=== PATIENT | female | born 1945 | race Caucasian/White ===

== ENCOUNTER → 2016-11-27 | Outpatient (CLI) | payer OTHER ==
[~2016-11-27] MED LIST: ACET-1256 PO; ASPI81TA28 PO; CALC600T9 PO; CLC100 PO; FURO-85 PO; GABA-113 PO; HYDR50TA3 PO; LVNIS30 SQ; METO25TA3 PO; MULT-1018 PO; MULT-506 PO; NAPR-1169 PO; OXYC1TAB3 PO; ROSU40TA PO; ULT50X PO
--- NOTE | 2016-11-27 09:15 | DIAGNOSTIC IMAGING REPORT ---
RIGHT KNEE RADIOGRAPHS WITH COMPARISON STANDING AP RADIOGRAPH OF THE LEFT KNEE CLINICAL HISTORY: Right knee pain. COMPARISON: Knee radiographs August 25, 2013. FINDINGS: Comparison standing AP radiograph of the left knee demonstrates mild lateral compartment joint space narrowing. Alignment of the right knee is anatomic. There is a small right knee joint effusion. There is moderate to severe lateral compartment joint space narrowing. There is patellofemoral joint space narrowing with osteophytosis. No acute fracture is identified. IMPRESSION: 1. Moderate to severe osteoarthritis within the lateral and patellofemoral compartments of the right knee with mild arthritis within the medial compartment. 2. Small right knee joint effusion. 3. No fracture. Electronically signed by: Marciano Hernandez M.D. 11/27/2016 9:13 AM Dictated Date/Time: 11/27/2016 9:12 AM
== END | disposition home or self-care (01) ==
LOC: C.RDSM 09:00
PROVIDERS: ATTEND Physician Assistant
DX: M25.561 Pain in right knee (principal)

== ENCOUNTER → 2016-12-14 | Outpatient (CLI) | payer OTHER ==
--- NOTE | 2016-12-14 14:02 | DIAGNOSTIC IMAGING REPORT ---
PELVIS 1 OR 2 VIEWS CLINICAL HISTORY: Pelvis pain. Fall. Left hip pain. COMPARISON STUDY: Left hip 02/06/2011. FINDINGS: No acute fracture or dislocation within the pelvis or hips. There is a left total hip arthroplasty. The hardware is intact. Mild osteoarthritis within the right hip. No fractures within the sacrum. IMPRESSION: No acute fracture or dislocation within the pelvis or hips. Left total hip arthroplasty. Electronically signed by: Noam Wallace M.D. 12/14/2016 2:00 PM Dictated Date/Time: 12/14/2016 1:58 PM
== END | disposition home or self-care (01) ==
LOC: C.RDSM 07:55
PROVIDERS: ATTEND Physician Assistant
DX: R10.2 Pelvic and perineal pain (principal); Z96.642 Presence of left artificial hip joint

== ENCOUNTER → 2017-05-14 | Outpatient (CLI) | payer OTHER | END | disposition home or self-care (01) | LOC: C.RDSM 12:19 | PROVIDERS: ATTEND Physical Medicine & Rehabilitation Sports Medicine | DX: M17.11 Unilateral primary osteoarthritis, right knee (principal) ==

== ENCOUNTER 2017-06-08 07:03 | Inpatient (IN) | payer OTHER ==
--- NOTE | 2017-05-19 11:41 | HISTORY & PHYSICAL EXAMINATION ---
DATE OF ADMISSION: 06/08/2017 ATTENDING PHYSICIAN: Dr. Ced Plascencia. FAMILY PHYSICIAN: Dr. Victor Hugo Tate. CHIEF COMPLAINT: Right knee pain x5 or more years. HISTORY OF PRESENT ILLNESS: The patient has been having right knee pain for the past 5 years or more. She states that it has been progressively worsening over the last year or so. She has pain across the top and radiates around the back of her knee. She does have radiation up and down her thigh. Her pain has increased with activity and weightbearing. She has decreasing activities of daily living due to pain in her right knee. She states she has pain with range of motion and limited motion. Occasionally, she gets some mild swelling of the knee which comes and goes. Aggravating activities include walking, going up and down stairs, rest and night pain. She states that it does wake her up on a pretty regular basis. Prior treatments include nonsteroidal anti-inflammatory drugs, physical therapy after her meniscectomy in 2005. She said that she has had a brace, but she does not presently use it. She said that it really has not given her much relief. Sometimes it makes her knee worse. She states that she feels that her problems had started maybe in 2005 after she had a knee arthroscopy. She has also had viscosupplementation and corticosteroid injections most recently in November 2016. PAST MEDICAL HISTORY: 1. Hyperlipidemia. 2. Osteoarthritis. 3. High blood pressure. 4. Overweight. 5. Low back pain, history of sciatica. 6. 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 7. Dermato stasis, right lower extremity. CURRENT MEDICATIONS: 1. Acetaminophen 500 mg p.o. as needed for pain. 2. Aspirin 81 mg p.o. daily. 3. Calcium plus vitamin D two tablets twice daily. 4. Furosemide 20 mg p.o. daily. 5. Hydrochlorothiazide 50 mg p.o. daily. 6. Multivitamin p.o. daily. 7. Naproxen 500 mg one tab p.o. b.i.d. 8. Crestor 20 mg one tab p.o. daily. 9. She takes a hair, skin and nail supplement daily. ALLERGIES: SHE IS ALLERGIC TO SULFA DRUGS WHICH CAUSE HIVES. PAST SURGICAL HISTORY AND HOSPITALIZATIONS: 1. She had a history of right knee arthroscopy, is status post partial medial meniscectomy in [address] Plascencia. 2. She had a left total hip replacement in 2010. 4. D&C. 5. Eye surgery in 2007. 6. Ganglion cyst and neuroma removal. SOCIAL HISTORY: She lives with her in a single level home. Denies any tobacco or drug use. She does drink one alcoholic drink per week. She does not use any assisted device for ambulation at this point. FAMILY HISTORY: Father had a history of stroke. Her mother had a history of CHF. Her mother at age of 92 and her father at the age of 91. REVIEW OF SYSTEMS: She does state that she did receive a blood transfusion after her hip replacement in 2010 and she did fine with that. No concerns regarding transfusions for this admission. She denies any bleeding or clotting disorders. Denies any history of DVT, pulmonary embolus, or phlebitis. She denies any skin conditions, although she recently had a squamous cell carcinoma removed from her left cheek. Denies any issues with headaches or migraines. Denies any blurry vision or hearing loss. She denies any history of seizures, syncopal episodes, lightheadedness or dizziness. Denies any chest pain, heart palpitations or shortness of breath. She denies any issues with heartburn, reflux, indigestion, nausea, vomiting, diarrhea or constipation. She denies any frequency, burning with urination, or foul-smelling urine. No recent urinary tract infections. Review of systems for her lower extremities as per HPI. PHYSICAL EXAMINATION: GENERAL: She is alert and oriented x3. She does not use an assistive device for ambulation. She does not walk with an antalgic gait. Height is 5 feet 7 inches, weight is 200 pounds, BMI is 31.3. HEENT: Head is atraumatic, normocephalic. EYES: Extraocular movements intact. Pupils are equal, round and reactive to light. Sclerae are normal. EARS: Hearing is grossly normal. TMs are clear with normal light reflex. NOSE: Nares are patent bilaterally, normal turbinates. THROAT: Oropharynx is clear. Mucous membranes are moist. Good dentition. Uvula midline. NECK: Nontender to palpation, supple. No lymphadenopathy, no carotid bruits appreciated. Thyroid normal. Trachea midline. CHEST: Nontender to palpation. No accessory muscles use. LUNGS: Clear to auscultation bilaterally. No adventitious sounds. HEART: Regular rate and rhythm, normal S1, S2, no murmurs appreciated. ABDOMEN: Soft, nontender, nondistended. Bowel sounds heard in all 4 quadrants. MUSCULOSKELETAL: She does have some mild change to her skin on the right lower extremity suggestive of chronic venous stasis disease. She is able to actively do an independent straight leg raise. There is pain with movement of her right hip. Ligamentously, her right knee is stable. She has valgus alignment. Her strength is 5/5. A 1+ dorsalis pedis and posterior tibial pulses. Range of motion of her right knee is 0/5/95. Tenderness lateral more so than on the medial side. There is no effusion to her right knee today. RADIOLOGY IMAGES: X-rays: 4 views of bilateral knees show [id number] changes, especially in the lateral compartment of her right knee. Slight valgus alignment. Impression: Distal osteophyte formation and some subchondral sclerosis. No evidence of subluxation. IMPRESSION: End-stage osteoarthritis, right knee. PLAN: The patient will be admitted for a right total knee arthroplasty with Dr. Plascencia on 06/08/2017 at the [facility]. The risks and complications of the surgery were explained to the patient include, but are not limited to infection, pain, bleeding, scarring, nerve and blood vessel damage, wound problems, weakness, stiffness, incomplete relief of symptoms, hardware failure, hardware loosening or wear, fracture, blood clots, embolisms, heart attack, stroke and . All questions were answered and informed consent was obtained by Dr. Plascencia. Prior to surgery, she will have preadmission testing in which we will obtain a preoperative EKG, chest x-ray, CBC, BMP, PT, PTT, type and screen. She will also obtain preoperative medical clearance by her family physician, Dr. Tate or someone from his practice. Postoperative course was discussed. She would like to go home with outpatient physical therapy after surgery. We will use Lovenox for DVT prophylaxis for 4 weeks postoperatively. All questions were answered today. She knows to call with any further problems, questions, or concerns. TAMIKO
[2017-05-21 10:03] VITALS: BMI 32.0
--- NOTE | 2017-05-21 10:48 | PAT Medication Instructions ---
Service Date May 21, 2017. Current Home Medication List Acetaminophen (Tylenol), 1,000 MG PO Q8 PRN for Pain Aspirin (Aspirin Ec), 81 MG PO QAM Calcium Carbonate-Vitamin D (Calcium + D), 1 TAB PO BID Furosemide (Lasix), 20 MG PO DAILY PRN for EDEMA Gabapentin (Neurontin), 300 MG PO BID Hydrochlorothiazide (Hctz), 50 MG PO QAM Multiple Vitamins W/ Minerals (Hair Skin and Nails Formu), 1 TAB PO QAM Multivitamin (Multivitamin), 1 TAB PO QAM Naproxen (Naprosyn), 500 MG PO BID Rosuvastatin Calcium (Crestor), 40 MG PO QAM Medication Instructions For Your Scheduled Surgery - Hold the following medications the morning of surgery: Furosemide (Lasix), 20 MG PO DAILY PRN for EDEMA Calcium Carbonate-Vitamin D (Calcium + D), 1 TAB PO BID Hydrochlorothiazide (Hctz), 50 MG PO QAM Multiple Vitamins W/ Minerals (Hair Skin and Nails Formu), 1 TAB PO QAM Multivitamin (Multivitamin), 1 TAB PO QAM Naproxen (Naprosyn), 500 MG PO BID (otherwise okay to continue per surgeon) - Take the following medications the morning of surgery with a sip of water OTHERWISE NOTHING TO EAT OR DRINK AFTER MIDNIGHT: Acetaminophen (Tylenol), 1,000 MG PO Q8 PRN for Pain (may take if needed up to 4 hours prior to surgery) Aspirin (Aspirin Ec), 81 MG PO QAM Gabapentin (Neurontin), 300 MG PO BID Rosuvastatin Calcium (Crestor), 40 MG PO QAM - Take the following medications as scheduled the night before surgery: Acetaminophen (Tylenol), 1,000 MG PO Q8 PRN for Pain Calcium Carbonate-Vitamin D (Calcium + D), 1 TAB PO BID Gabapentin (Neurontin), 300 MG PO BID If you have any questions please call us at [phone] or [phone] or [phone]
--- NOTE | 2017-05-21 11:24 | DIAGNOSTIC IMAGING REPORT ---
CHEST PREADMISSION(PA/LAT) CLINICAL HISTORY: Preoperative chest COMPARISON STUDY: No previous studies for comparison. FINDINGS: The cardiac and mediastinal contours are normal. There is no evidence of focal pulmonary consolidation. There is no evidence of failure. No pleural effusions are visualized.[ IMPRESSION: No active disease in the chest. Electronically signed by: Ferny Vargas M.D. 05/21/2017 11:23 AM Dictated Date/Time: 05/21/2017 11:23 AM
[2017-05-21 12:03] LABS: PROTHROMBIN TIME (PATIENT) 10.9 SECONDS (9.0-12.0)
[2017-06-08] VITALS (9 sets, daily range): BP systolic 129–187; BP diastolic 78–110; PULSE 57–81; TEMP 36.4–36.7; O2SAT 86–98; Ht 170.2 cm; Wt 92.6 kg
[~2017-06-08] VITALS: Ht 170.2 cm; Wt 92.6 kg
[2017-06-08] MEDS: TRANEXAMIC ACID INJ 1,000 MG in SODIUM CHLORIDE 0.9% 100ML 100 ML IV SCH ×3 (06:30→09:16)
[~2017-06-08 07:03] MED LIST changes: +ACETAMINOPHEN 500 MG TAB PO SCH; +BUPIVACAINE 0.5 % 5 MG/1 ML PF 10ML VIAL ONE; +CEFAZOLIN 2000 MG/60 ML D5W 60 ML IV SCH; -CLC100 PO; +CLONIDINE HCL 0.1 MG/24 HR TRANSDERM SYS TD SCH; +CeleBREX 200 MG CAP PO SCH; +DEXAMETHASONE 4 MG TAB PO SCH; +FAMOTIDINE 20 MG TAB PO SCH; +GABAPENTIN 300 MG CAP PO SCH; +LACTATED RINGER'S 1000ML 1,000 ML IV SCH; +LACTATED RINGER'S 1000ML 500 ML IV ONE; -LVNIS30 SQ; -METO25TA3 PO; +METOCLOPRAMIDE HCL 10 MG TAB PO SCH; -OXYC1TAB3 PO; +OXYCODONE HCL 10 MG TABCR (OXYCONTIN) PO SCH; +ROPIVACAINE 0.5% 5 MG/ML 30 ML VIAL ONE; +ROPIVACAINE 5MG/ML 30 ML 150 MG, BUPIVACAINE/EPINEPHR 0.5% MPF 30 ML, KETOROLAC TROMETH... INFIL SCH; +TRAMADOL HCL 50 MG TAB PO SCH; -ULT50X PO
[2017-06-08] MEDS ORDERED: MIDAZOLAM HCL 1 MG/ML 2ML VIAL ONE ×2 (08:12)
[2017-06-08] MEDS ORDERED: ONDANSETRON INJ 2 MG/ML 2 ML VIAL IV PRN ×2 (08:15→14:00)
[2017-06-08] MEDS ORDERED: PHENYLEPHRINE 100MCG/ML 5ML SYR IV PRN (08:15)
[2017-06-08] MEDS ORDERED: EpHEDrine SULFATE INJ 50 MG/ML AMP IV PRN (08:15)
[2017-06-08] MEDS ORDERED: HYDROmorphone INJ 2 MG/ML SYR/VIAL IV PRN (08:15)
[2017-06-08] MEDS ORDERED: ATROPINE SULFATE 0.1 MG/ML 5ML SYR IV PRN (08:15)
[2017-06-08] MEDS ORDERED: ROPIVACAINE 5MG/ML 30 ML 150 MG, BUPIVACAINE/EPINEPHR 0.5% MPF 30 ML, KETOROLAC TROMETH... INFIL SCH ×5 (09:00)
--- NOTE | 2017-06-08 09:56 | History & Physical Bridge Note ---
H&P Re-Evaluation Bridge Note: I have examined the patient, reviewed the History & Physical and in the interval since the performance of the History & Physical I have noted the following changes of clinical significance: No changes noted
[2017-06-08] MEDS ORDERED: ORTHO JOINT ANESTHETIC ONE (10:08)
[2017-06-08] MEDS ORDERED: POVIDONE-IODINE OP SOLN 30 ML BTL ONE (10:08)
[2017-06-08] MEDS ORDERED: BACITRACIN 50000 UNIT VIAL ONE (10:09)
[2017-06-08] MEDS ORDERED: FENTANYL CITRATE INJ 50 MCG/1 ML 2 ML VIAL ONE (12:20)
[2017-06-08] MEDS ORDERED: PROPOFOL IV EMULSION 10 MG/ML 20 ML VIAL IV ONE ×2 (12:35→13:17)
[2017-06-08] MEDS ORDERED: LIDOCAINE HCL 2% 2 ML VIAL (20MG/ML) ONE (12:35)
--- NOTE | 2017-06-08 13:52 | [facility] Operative Report ---
Operative Report Operative Date Jun 08, 2017. Pre-Operative Diagnosis Right Knee End-Stage Osteoarthritis lateral compartment with valgus and flexion contracture Post-Operative Diagnosis Right Knee End-Stage Osteoarthritis same Procedure(s) Performed Right Total Knee Arthroplasty, Cemented Surgeon Dr. Ced Plascencia Compliance Tester Surgeon(s) Soraya Ervin PA-C Estimated Blood Loss 50 ml Findings Significant lateral joint scarring and tightness of LCL and lateral capsular tissues necessitating a release. Specimens Permanent: A. Right Knee Bone and Tissue Drains none Anesthesia spinal with sedation and peripheral nerve block Complication(s) None Disposition Recovery Room / PACU Indications Patient's a 72-year-old female with severe osteoarthritis right knee lateral compartment refractory to nonsurgical methods of management. She elected to proceed with operative intervention. Description of Procedure Patient was identified as Keely cerna. Informed consent was obtained. A preoperative surgical timeout was performed. She identified the operative site as the right knee. I marked with my initials. Preoperative surgical timeout was performed. The anesthetic was administered. DVT prophylaxis intraoperatively with foot pumps. Postoperatively early mobility mechanical devices and Lovenox. The exam under anesthesia revealed range of motion 0/10/ approximate 105. She had no cruciate or collateral laxity there was slight valgus deformity to the knee. Tripped dose of IV antibiotics was given. He was positioned supine on the OR table with a tourniquet on the right thigh bony prominences were inspected and padded. A padded bump was used to position the leg. The right leg was prepped and draped in the usual sterile fashion. The limb was exsanguinated with the Esmarch. Tourniquet inflated to 250 mmHg and later to 300 mmHg. A midline longitudinal incision was made of about 20-25 cm in length. This was followed by a medial parapatellar arthrotomy. Patient received TXA preoperatively. The retropatellar fat pad was excised. This was significantly scarred. She had a large patella with medium-sized marginal osteophytes which were debrided. There were areas of grade 3 chondrosis in the medial and lateral facet of the patella. She had grade 4 change in the lateral compartment mostly central and posterior. The lateral meniscus was relatively intact. The medial meniscus was intact in the medial compartment looked relatively normal. The trochlea showed grade 2 and 3 changes. The cruciate ligaments were resected. The synovial reflection and lateral gutter and some scarring in the lateral gutter area and the knee was released. The patella was then able to be easily everted. Soft tissue on the anterior aspect the distal femur was also excised. A minimal medial release was performed. Enough in such a fashion for knee could be subluxated. The knee was then subluxated and a customer logistics manager hole drilled into the proximal tibia followed by insertion of an intramedullary alignment miesha. This was just between and in front of the tibial spines. Guide was set to resect 6 mm off of the high side which was medial corresponding to a 4 mm cut lateral. The slope was assessed with the extra medullary alignment miesha. The slope was parallel to the tibia and the ankle bisected the ankle joint and intersected the second ray. This cut was then made and sized to a 4. The tibia was later recut and downsized to a 3. Power holes drilled in the distal femur followed by insertion of the distal femoral cutting guide set at left knee 5 valgus upon preoperative templating and slight valgus metaphyseal bow. A 12 mm thick cut was then made which was almost a skim cut laterally. I double checked medially and this was a 12 mm thick cut. The extension gap was an 8 medially and probably a 6 laterally. I then performed an inverted cruciform release. Releasing the lateral capsule down to the tibial plateau and the soft tissue transversely between the LCL and [place] tendon which was identified. The popliteus did not appear to be tight. This did not solve the problem. The knee was then placed into the 90 position. The distal femoral sizing block was applied and sized to a 4. The cutting guide was applied and the cuts were then made. The flexion gap was as symmetric 10. The transverse epicondylar axis was marked out and the distal femoral cutting guide was aligned with it based upon the use of the instrumentation. The collateral ligaments were protected. At this point the symmetric flexion gap was symmetric 10. The extension gap remained significantly tight laterally. I then went ahead and resected posterior lateral osteophytes and released posterior lateral capsule off of the tibia. Small loose body was noted and excised. This improved the tightness slightly but remained asymmetrically tight. I then pie crusted the LCL and perhaps 2 mm was gained there but still not enough to get the [address]. Prior to this side had gone back and recut the tibia and additional 2 mm shell made the medial side a 10 mm. The tibia was downsized to a 3. I then went and slowly released the lateral collateral and popliteus off of the distal femur in 1 large soft tissue envelope. Releasing sequentially and then rechecking the laxity pattern. The LCL was not completely released perhaps half to two thirds of it were. At this point the 10 sizer block was applied with good fit and fill laterally with a trace bit of laxity medially. The knee could be held in full extension. The box cutting guide was applied lateralized and the box cut was made. Tibia was then sized to a 3 component was oriented properly and the keel was drilled and punched. The trial components were inserted with a 10 spacer. This showed full extension stable in full extension stable in 90 with 1+ collateral laxity in mid position. Tension was turned to the patella which measured 25-1/2 mm in thickness. It was a large patella and a 41 mm paddle was selected. The guide was set to preserve 15 mm of bone. The residual patellar thickness was 14. The patella tracked fine with a no hands technique. A lateral release was already performed to improve the pathologic lateral tightness. The components were removed. The joint mix was injected in the back of the knee. The canals were plugged. The bony surfaces were meticulous repair prepared with pulse lavage. Components were cemented in place femur tibia and patella knee was held full extension until cement hardened. The time the tourniquet was let down. There is no significant bleeding and hemostasis was performed with electrocautery. Another dose of TXA was given. The knee was stable in full extension and had 1+ collateral laxity in the position and was stable at 90. The knee was neutrally alignment with full extension. Patella tracking was fine. A 10 mm polyethylene was applied It was that the knee could be subluxated in mid position. Despite extensive traveling for this it was not demonstrated. Patient was awakening from her anesthetic and was melody and relaxing her muscles. Did not think previously that 12.5 mm insert would be possible due to the tightness in extension. I then went ahead and got the final probably retrial to 12 5. The knee had full extension was stable there as well as in 90. Her flexion nor her extension were notably compromised. The mid flexion laxity was eliminated and the knee could not be subluxated. Resting the knee on the table in mid flexion with stress did not result in any subluxation.I then went ahead and inserted the final 5 as the final poly. While the cement was hardening Betadine lavage was performed and the remainder of the joint mix was injected into the knee. Pulsatile lavage was performed. The back the knee was inspected for cement removed as encountered meticulous hemostasis was performed. Soft tissues were kept moist throughout the procedure and copious irrigation was done. Extensor mechanism was closed with #2 FiberWire above the equator the patella running #1 Vicryl and interrupted #1 Vicryl below. The skin was closed in layers with 0 and 2-0 Vicryl imer on the skin with a Silverlon dressing reinforced with a soft sterile dressing and full-length Gustavo wrap. From anesthesia without difficulty. Taken recovery room in stable condition. Resected bone was sent for specimen. There were no complications. Counts are correct in the case. Blood loss was 50 mL. The conclusion operation I spoke to her informed of my findings. Detailed postoperative instructions were given. She she will be rehabilitated according to the replacement protocol. Her Lovenox will morning following surgery. Components inserted were a 41 mm 3 peg oval dome patella. Composite patellar thickness at the conclusion of the operation was 26 mm. Resisted flexion with the extensor mechanism closed was approximately 105 very similar to what it was preoperatively. Prior to surgery I could not manipulate her knee and any further flexion. A size 3 mobile bearing keeled tibial tray. J[employer] PFC Sigma rotating platform knee. Size 4 narrow femur posterior stabilized. A size 4.5 mm thick rotating platform posterior stabilized polyethylene insert I attest to the content of the Intraoperative Record and any orders documented therein. Any exceptions are noted below.
--- NOTE | 2017-06-08 13:57 | [facility] Operative Report ---
Operative Report Operative Date Jun 08, 2017. Pre-Operative Diagnosis Right Knee End-Stage Osteoarthritis lateral compartment with valgus and flexion contracture Post-Operative Diagnosis Right Knee End-Stage Osteoarthritis same Procedure(s) Performed Right Total Knee Arthroplasty, Cemented Surgeon Dr. Ced Plascencia Cotton Farmworker Surgeon(s) Soraya Ervin PA-C Estimated Blood Loss 50 ml Findings DJD right knee Specimens Permanent: A. Right Knee Bone and Tissue Drains none Anesthesia spinal with sedation and peripheral nerve block Complication(s) None Disposition Recovery Room / PACU (stable) Indications Patient is 72 year old female, who has been seen by Dr. Plascencia for many years with complaints of right knee pain. Has progressively worsened, failed conservative treatment, surgery recommended. She agreed to proceed with surgery. Risks/complications discussed, informed consent obtained. Description of Procedure Patient was taken to the operating room, given spinal anesthetic. Given peripheral nerve block. Given IV Ancef for surgical prophylaxis. Time out performed, prepped and draped in routine sterile fashion. I was present the entire case, please see Dr. Plascencia's operative report for further detail. patient was awakened and taken to the recovery room in stable condition. I attest to the content of the Intraoperative Record and any orders documented therein. Any exceptions are noted below.
[2017-06-08] MEDS ORDERED: BISACODYL 10 MG SUPP PR PRN (14:00)
[2017-06-08] MEDS ORDERED: ALUMINUM/MAGNESIUM/SIMETH (MAALOX MAX) 30 ML UDC PO PRN (14:00)
[2017-06-08] MEDS ORDERED: MAGNESIUM HYDROXIDE SUSP 30 ML UDC PO PRN (14:00)
[2017-06-08] MEDS ORDERED: ACETAMINOPHEN 325 MG TAB PO PRN (14:00)
[2017-06-08] MEDS ORDERED: FUROSEMIDE 20 MG TAB PO PRN (14:00)
[2017-06-08] MEDS ORDERED: SOD PHOSPHATE/SOD BIPHOSPHATE ENEMA 132 ML BTL PR PRN (14:00)
[2017-06-08] MEDS ORDERED: METOCLOPRAMIDE HCL INJ 5 MG/ML 2 ML VIAL IV PRN (14:00)
--- NOTE | 2017-06-08 14:35 | Anesthesiology Progress Note ---
Anesthesia Post Op Note Date & Time Jun 08, 2017 at 14:35 Vital Signs Pain Intensity: 0 Vital Signs Past 12 Hours Date Time Temp Pulse Resp B/P (MAP) Pulse Ox O2 Delivery O2 Flow Rate FiO2 06/08/17 14:20 36.2 69 16 158/81 94 Nasal Cannula 2 06/08/17 14:15 36.2 69 16 158/84 94 Nasal Cannula 2 06/08/17 14:05 70 16 141/80 94 Nasal Cannula 2 06/08/17 13:55 67 16 165/88 95 Oxymask 10 06/08/17 13:49 36.6 68 16 166/90 96 Oxymask 10 06/08/17 08:00 36.7 81 20 180/93 97 Room Air Notes Mental Status: alert / awake / arousable, participated in evaluation Pt Amnestic to Procedure: Yes Nausea / Vomiting: adequately controlled Pain: adequately controlled Airway Patency, RR, SpO2: stable & adequate BP & HR: stable & adequate Hydration State: stable & adequate Anesthetic Complications: no major complications apparent
--- NOTE | 2017-06-08 15:00 | DIAGNOSTIC IMAGING REPORT ---
R KNEE 1 OR 2 VIEWS ROUTINE CLINICAL HISTORY: 72 years-old Female presenting with status post TKA right knee. TECHNIQUE: Frontal and lateral views of the right knee were obtained. COMPARISON: 05/14/2017. FINDINGS: Postsurgical changes of total right knee arthroplasty with patellar resurfacing. Intra-articular and soft tissue emphysema. Overlying skin imer. No malalignment. No acute fracture. No hardware complication. IMPRESSION: Expected postsurgical appearance status post total right knee arthroplasty with patellar resurfacing. Electronically signed by: Ced Arana M.D. 06/08/2017 2:59 PM Dictated Date/Time: 06/08/2017 2:58 PM
[2017-06-08] MEDS: D5W AND 1/2NSS + 20MEQ KCL 1,000 ML IV SCH (16:06)
[2017-06-08] MEDS: OXYCODONE HCL IR 5 MG TAB (IMMEDIATE RELEASE) PO PRN ×2 (16:07→17:06)
[2017-06-08] MEDS: HYDROCHLOROTHIAZIDE 50 MG TAB PO SCH (16:29)
[2017-06-08] MEDS: KETOROLAC TROMETHAMINE 15 MG/ML VIAL IV. SCH (17:50)
[2017-06-08] MEDS: CEFAZOLIN IV 2,000 MG in DEXTROSE 5% 50ML 50 ML IV SCH (17:50)
--- NOTE | 2017-06-08 18:19 | Medical Consult ---
Consultation Date of Consultation: Jun 08, 2017. Attending Physician: Ced Plascencia M.D. Reason for Consultation: Post-op hypertension management History of Present Illness This is a 72yo F with a PMH of HTN, HLD, venous stasis dermatitis and generalized OA who is POD#0 s/p R knee total arthroplasty performed by Dr. Plascencia. Patient is doing well post-operatively. Vitals have been stable and patient denies any symptoms besides 5/10 R knee pain. At home, patient's HTN is managed with HCTZ 50mg once daily and patient reports BPs ranging from 120s- 140s systolic. Does report that more recent BPs at her PCP have increased to the 150s SBP. Patient also has R LE venous stasis dermatitis for which she takes 20mg Lasix daily. Per pre-op instruction, patient held both the HCTZ and Lasix this morning before surgery. BPs have increased today from 141/80 to 185/ 99. Patient is asymptomatic, denying any dizziness, lightheadedness, visual changes, palpitations, CP, SOB, nausea, vomiting, abdominal pain or worsening LE swelling. Past Medical/Surgical History Medical Problems: (1) CAD (coronary artery disease), nikolai coronary artery Status: Chronic (2) GERD (gastroesophageal reflux disease) Status: Chronic (3) HLD (hyperlipidemia) Status: Chronic (4) HTN (hypertension) Status: Chronic (5) Osteoarthritis Status: Chronic (6) Right knee DJD Status: Chronic (7) Venous stasis dermatitis of right lower extremity Status: Chronic Family History Diabetes mellitus FATHER FH: heart disease FATHER MOTHER Social History Smoking Status: Never Smoker Smokeless Tobacco Use: No Alcohol Use: socially (1-2 glasses of wine/week. ) Marital Status: Housing Status: lives with significant other Occupation Status: retired Allergies Coded Allergies: Sulfa Antibiotics (Verified Allergy, Unknown, HIVES, 06/08/17) Home Medications Reported Home Medications Medications Dose Route/Sig Max Daily Dose Days Date Category Hair Skin and Nails Formu (Multiple Vitamins W/ Minerals) 1 Tab Tab 1 Tab PO QAM 05/21/17 Reported Tylenol (Acetaminophen) 500 Mg Tab 1,000 Mg PO Q8 PRN 05/21/17 Reported Lasix (Furosemide) 20 Mg Tab 20 Mg PO DAILY PRN 05/21/17 Reported Neurontin (Gabapentin) 300 Mg Cap 300 Mg PO BID 05/21/17 Reported Multivitamin (Multivitamins) Tab 1 Tab PO QAM 03/31/16 Reported Calcium + D (Calcium Carbonate-Vitamin D) 1 Tab Tab 1 Tab PO BID 03/31/16 Reported Aspirin Ec (Aspirin) 81 Mg Tab 81 Mg PO QAM 03/31/16 Reported Hctz (Hydrochlorothiazide) 50 Mg Tab 50 Mg PO QAM 03/31/16 Reported Crestor (Rosuvastatin Calcium) 40 Mg Tab 40 Mg PO QAM 03/31/16 Reported Naprosyn (Naproxen) 500 Mg Tab 500 Mg PO BID 03/31/16 Reported Current Inpatient Medications Current Inpatient Medications Medications (Trade) Dose Ordered Sig/Inga Route Start Time Stop Time Status Last Admin Dose Admin Cefazolin Sodium 60 ml @ 100 mls/hr PREOP IV 06/08/17 06:00 06/08/17 18:00 06/08/17 10:36 100 MLS/HR Acetaminophen (Tylenol Tab) 1,000 mg PREOP PO 06/08/17 06:00 06/08/17 18:00 06/08/17 08:19 1,000 MG Dexamethasone (Decadron Tab) 8 mg PREOP PO 06/08/17 06:00 06/08/17 18:00 06/08/17 08:18 8 MG Famotidine (Pepcid Tab) 20 mg PREOP PO 06/08/17 06:00 06/08/17 18:00 06/08/17 08:22 20 MG Gabapentin (Neurontin Cap) 300 mg PREOP PO 06/08/17 06:00 06/08/17 18:00 06/08/17 08:18 300 MG Metoclopramide HCl (Reglan Tab) 10 mg PREOP PO 06/08/17 06:00 06/08/17 18:00 06/08/17 08:18 10 MG Oxycodone HCl (Oxycontin Tab) 10 mg PREOP PO 06/08/17 06:00 06/08/17 18:00 06/08/17 08:22 10 MG Clonidine HCl (Jerrcuba-Ssd-7 0.1mg/24hr Patch) 1 patch PREOP TD 06/08/17 06:00 06/08/17 18:00 06/08/17 08:17 1 PATCH Miscellaneous (Remove Clonidine Patch) 1 ea Q72H N/A 06/11/17 06:00 06/11/17 06:01 Tranexamic Acid 1000 mg/Sodium Chloride 110 ml @ 660 mls/hr TODAY@06,0630 IV 06/08/17 06:00 06/08/17 18:00 06/08/17 09:16 660 MLS/HR Tramadol HCl (Ultram Tab) 50 mg PREOP PO 06/08/17 06:00 06/08/17 18:00 06/08/17 08:19 50 MG Lactated Ringer's 1,000 ml @ 60 mls/hr [id number] IV 06/08/17 06:00 06/08/17 22:39 Lactated Ringer's 1,000 ml @ 15 mls/hr Q24H IV 06/08/17 06:00 06/09/17 05:59 Potassium Chloride/Dextrose/ Sod Cl 1,000 ml @ 100 mls/hr Q10H IV 06/08/17 16:00 06/09/17 15:59 06/08/17 16:06 100 MLS/HR Cefazolin Sodium 2000 mg/Dextrose 60 ml @ 100 mls/hr Q8H IV 06/08/17 18:00 06/09/17 02:35 06/08/17 17:50 100 MLS/HR Ketorolac Tromethamine (Toradol Inj) 15 mg Q6 IV. 06/08/17 18:00 06/09/17 17:59 06/08/17 17:50 15 MG Oxycodone HCl (Roxicodone Immediate Rel Tab) 1 TABLET FOR PAIN RATING... Q4H PRN PO 06/08/17 14:00 06/22/17 13:59 06/08/17 17:06 5 MG Morphine Sulfate (MoRPHine SULFATE INJ) 2 mg Q4H PRN IV 06/08/17 14:00 06/22/17 13:59 Acetaminophen (Tylenol Tab) 650 mg Q6H PRN PO 06/08/17 14:00 07/08/17 13:59 Magnesium Hydroxide (Milk Of Magnesia Susp) 30 ml Q6H PRN PO 06/08/17 14:00 07/08/17 13:59 Bisacodyl (Dulcolax Supp) 10 mg DAILY PRN LA 06/08/17 14:00 07/08/17 13:59 Sodium Biphosphate/ Sodium Phosphate (Fleet Enema) 132 ml DAILY PRN LA 06/08/17 14:00 07/08/17 13:59 Docusate Sodium (coLACE CAP) 100 mg BID PO 06/08/17 21:00 07/08/17 20:59 Al Hydrox/Mg Hydrox/Simethicone (Maalox Max Susp) 15 ml Q4H PRN PO 06/08/17 14:00 07/08/17 13:59 Multivitamins (Multivitamin Tab) 1 tab QAM PO 06/09/17 09:00 07/09/17 08:59 Ondansetron HCl (Zofran Inj) 4 mg Q6H PRN IV 06/08/17 14:00 07/08/17 13:59 Metoclopramide HCl (Reglan Inj) 10 mg Q6H PRN IV 06/08/17 14:00 07/08/17 13:59 Pantoprazole Sodium (Protonix Tab) 40 mg QAM PO 06/09/17 09:00 07/09/17 08:59 Tramadol HCl (Ultram Tab) 1 tablet for pain rating... Q4H PRN PO 06/08/17 14:00 07/08/17 13:59 Dexamethasone (Decadron Tab) 8 mg TODAY@0730 PO 06/09/17 07:30 06/09/17 07:31 Enoxaparin Sodium (Lovenox Inj) 30 mg Q12H SQ 06/09/17 09:00 07/09/17 08:59 UNV Aspirin (Ecotrin Tab) 81 mg QAM PO 06/09/17 09:00 07/09/17 08:59 Furosemide (Lasix Tab) 20 mg DAILY PRN PO 06/08/17 14:00 07/08/17 13:59 Gabapentin (Neurontin Cap) 300 mg BID PO 06/08/17 21:00 07/08/17 20:59 Hydrochlorothiazide (Hydrochlorothiazide Tab) 50 mg QAM PO 06/09/17 09:00 07/09/17 08:59 06/08/17 16:29 50 MG Rosuvastatin Calcium (Crestor Tab) 40 mg QAM PO 06/09/17 09:00 07/09/17 08:59 Calcium/Vitamin D (Caltrate Plus Tab) 1 tab BID PO 06/08/17 21:00 07/08/17 20:59 Morphine Sulfate (MoRPHine SULFATE INJ) 4 mg Q4H PRN IV 06/08/17 16:00 06/22/17 15:59 Review of Systems Constitutional- no fever; no weight loss Eyes- no acute visual changes ENT- no sinus drainage; no pharyngitis Pulmonary- no cough, no wheezing, no shortness of breath Cardiac- See HPI. GI- See HPI. - no dysuria, no hematuria Musculoskeletal- See HPI. Derm- no rashes, no new skin lesions, no changing skin lesions Hematologic- no unusual bruising, no unusual bleeding Lymphatics- no adenopathy Endocrine- no polyuria or polydipsia; no heat or cold intolerance Neuro- no headaches, no focal neurologic symptoms Psych- no anxiety, no depression Physical Exam Date Time Temp Pulse Resp B/P (MAP) Pulse Ox O2 Delivery O2 Flow Rate FiO2 06/08/17 16:35 36.7 57 18 185/99 (127) 96 Nasal Cannula 3.0 06/08/17 16:10 Nasal Cannula 2.0 06/08/17 15:35 36.6 69 18 187/97 (127) 97 Nasal Cannula 3.0 06/08/17 15:05 36.7 73 18 185/110 (135) 98 Nasal Cannula 3.0 06/08/17 15:00 Nasal Cannula 2.0 06/08/17 15:00 Nasal Cannula 2.0 06/08/17 14:20 36.2 69 16 158/81 94 Nasal Cannula 2 06/08/17 14:15 36.2 69 16 158/84 94 Nasal Cannula 2 06/08/17 14:05 70 16 141/80 94 Nasal Cannula 2 06/08/17 13:55 67 16 165/88 95 Oxymask 10 06/08/17 13:49 36.6 68 16 166/90 96 Oxymask 10 06/08/17 08:00 36.7 81 20 180/93 97 Room Air General Appearance: WD/WN, no apparent distress Head: normocephalic, atraumatic Eyes: normal inspection (Conjunctiva and lids normal ), PERRL, sclerae normal ENT: normal ENT inspection (Nose and ears without lesions, masses. ), hearing grossly normal Neck: supple, thyroid normal (No enlargement or tenderness ), trachea midline Respiratory/Chest: chest non-tender (PMI not displaced. No thrills. ), lungs clear, normal breath sounds (No rales, rhonci, crackles ), no respiratory distress, no accessory muscle use Cardiovascular: regular rate, rhythm, no murmur, + pertinent finding (R LE with mild edema (chronic). Left without edema. ) Abdomen/GI: non tender, no organomegaly (No hepatomegaly or splenomegaly ), no pulsatile mass Extremities/Musculoskelatal: normal inspection (SCDs in place ), no calf tenderness, + pertinent finding (R knee with dressing in place. Clean, dry, intact. Ice in place. ) Neurologic/Psych: no motor/sensory deficits, alert, normal mood/affect, oriented x 3 Skin: normal color, warm/dry, no rash Assessment & Plan This is a 72yo F with a PMH of HTN, HLD, venous stasis dermatitis and generalized OA who is POD#0 s/p R knee total arthroplasty performed by Dr. Plascencia. Hypertension: -BP elevated to 185/99 -Asymptomatic, no evidence of end organ failure -Likely multifactorial: -Diuretics (Lasix and HCTZ) held this AM prior to surgery -Receiving IVF post-op -Inadequate pain control (Has only been taking half of PRN pain medication) -Encouraged to control pain -Give diuretic doses missed this AM -Continue to monitor and make adjustments if indicated S/p R TKA: -H/o longstanding OA -POD#0 s/p with Dr. Plascencia -Pt is doing well post-operatively -Per ortho for pain control, wound care, anticoagulation and activities -Monitor H&H, continue incentive spirometry, PT/OT when appropriate Non-obstructive CAD: -No CP, SOB -Continue aspirin, statin R venous stasis dermatitis : -Resume diuretics HLD: -Stable -Continue statin DVT Ppx: Per ortho Code status: FULL PCP: [facility] Dispo: Plan to return home once medically stable Thank you for this consultation. We will follow the patient with you during their hospital stay. You can reach a [facility] via pager @ . Attending addendum. I have seen and assessed the patient with our team's physician certified physical therapist assistant. I agree with the assessment and plan. patient is hypertensive after surgery but clinically well appearing and denies symptoms pf headache or shortness of breath or chest pain. restart home dose anti-hypertensives and pain control medications.
[2017-06-08] MEDS ORDERED: FUROSEMIDE 20 MG TAB PO ONE (18:21)
--- NOTE | 2017-06-08 19:26 | PROGRESS NOTE ---
DATE: 06/08/2017 SUBJECTIVE: The patient is resting comfortably in bed. Nurse reports that her blood pressure has been elevated, has been 180/90. Medicine will be consulted. Her pain is reasonably well controlled. She has a 1+ posterior tib pulse. Her foot is warm. She reports intact sensation and has a half grade of weakness to ankle and toe, plantar flexion and dorsiflexion. X-rays show good positioning of the knee arthroplasty with no evidence of complication. She is stable postop and the postoperative plan is reviewed with her. She will start on her Lovenox in the morning.
[2017-06-08] MEDS: GABAPENTIN 300 MG CAP PO SCH (20:37)
[2017-06-08] MEDS: DOCUSATE SODIUM 100 MG CAP PO SCH (20:37)
[2017-06-08] MEDS: CALCIUM 600MG + VIT D 400 IU TAB PO SCH (20:37)
[2017-06-09] VITALS (7 sets, daily range): BP systolic 130–166; BP diastolic 80–93; PULSE 69–91; TEMP 36.5–36.8; O2SAT 90–96
[2017-06-09] MEDS: KETOROLAC TROMETHAMINE 15 MG/ML VIAL IV. SCH ×3 (00:01→12:27)
[2017-06-09] MEDS: CEFAZOLIN IV 2,000 MG in DEXTROSE 5% 50ML 50 ML IV SCH (02:04)
[2017-06-09] MEDS: D5W AND 1/2NSS + 20MEQ KCL 1,000 ML IV SCH ×2 (02:05→12:27)
[2017-06-09] MEDS ORDERED: DEXAMETHASONE 4 MG TAB PO SCH (07:30)
[2017-06-09 07:43] LABS: HEMATOCRIT 33.8 % (37-47); MEAN CELL VOLUME 95.2 fL (80-100); MEAN CORPUSCULAR HGB CONC 32.5 g/dl (32-36); PLATELET COUNT 157 K/uL (130-400); RED BLOOD COUNT 3.55 M/uL (4.2-5.4); WHITE BLOOD COUNT 14.13 K/uL (4.8-10.8)
[2017-06-09 07:54] LABS: PROTHROMBIN TIME (PATIENT) 10.9 SECONDS (9.0-12.0)
[2017-06-09 08:09] LABS: BUN/CREATININE RATIO 27.4 (10-20); CALCIUM 8.2 mg/dl (8.5-10.1); CREATININE 0.65 mg/dl (0.60-1.20); POTASSIUM 3.6 mmol/L (3.5-5.1)
[2017-06-09] MEDS: ROSUVASTATIN CALCIUM 20 MG TAB PO SCH (08:41)
[2017-06-09] MEDS: GABAPENTIN 300 MG CAP PO SCH ×2 (08:41→21:31)
[2017-06-09] MEDS: DOCUSATE SODIUM 100 MG CAP PO SCH ×2 (08:41→21:30)
[2017-06-09] MEDS: MULTIVITAMIN TAB PO SCH (08:41)
[2017-06-09] MEDS: CALCIUM 600MG + VIT D 400 IU TAB PO SCH ×2 (08:41→21:30)
[2017-06-09] MEDS: ASPIRIN 81 MG ECTAB PO SCH (08:41)
[2017-06-09] MEDS: PANTOprazole SOD 40 MG TAB PO SCH (08:42)
--- NOTE | 2017-06-09 08:46 | Orthopedic Progress Note ---
Orthopedic Progress Note Date of Service Jun 09, 2017. Subjective Post OP Day: 1 Reports: feeling well, pain controlled w PO medications, Denies: complaints, chest pain, SOB, nausea / vomiting, light headedness, calf pain Additional Notes: States only has some pain on the inside of her knee, but tolerable. States Toradol really helped last night. Doing exercises in bed and in chair frequently. Objective calves soft nontender, N/V intact, capillary refill less than 2 sec., dressing C /D/I, A&O x3, toes mobile Distal pulses 1+, distal sensation intact, strength 5/5. Knee immobilizer in place. Sitting in bed. Leg elevated Date Time Temp Pulse Resp B/P (MAP) Pulse Ox O2 Delivery O2 Flow Rate FiO2 06/09/17 07:15 Room Air 06/09/17 06:59 36.6 69 18 152/80 (104) 90 Room Air 06/09/17 03:45 36.5 70 16 131/82 (98) 93 Nasal Cannula 2.0 06/09/17 00:00 Room Air 06/08/17 23:35 96 Nasal Cannula 2.0 06/08/17 23:30 36.4 74 16 129/78 (95) 86 Room Air 06/08/17 20:27 148/78 (101) 06/08/17 18:54 71 173/99 (123) 06/08/17 17:35 36.4 62 18 178/96 (123) 97 Nasal Cannula 3.0 06/08/17 16:35 36.7 57 18 185/99 (127) 96 Nasal Cannula 3.0 06/08/17 16:10 Nasal Cannula 2.0 06/08/17 15:35 36.6 69 18 187/97 (127) 97 Nasal Cannula 3.0 06/08/17 15:05 36.7 73 18 185/110 (135) 98 Nasal Cannula 3.0 06/08/17 15:00 Nasal Cannula 2.0 06/08/17 15:00 Nasal Cannula 2.0 06/08/17 14:20 36.2 69 16 158/81 94 Nasal Cannula 2 06/08/17 14:15 36.2 69 16 158/84 94 Nasal Cannula 2 06/08/17 14:05 70 16 141/80 94 Nasal Cannula 2 06/08/17 13:55 67 16 165/88 95 Oxymask 10 06/08/17 13:49 36.6 68 16 166/90 96 Oxymask 10 Laboratory Results 24 Hours: Test 06/09/17 07:30 Hematocrit 33.8 % Hemoglobin 11.0 g/dL Prothromb Time International Ratio 1.0 Prothrombin Time 10.9 SECONDS Assessment & Plan Assessment: POD 1 - Right TKA Plan: Continue OOB/WBAT RLE with assistance of walker. Ice/elevate as needed for pain/swelling Continue exercises/PT. Encouraged straightening exercises. Pain medication as prescribed. Lovenox 30 mg BID x 28 days for DVT prophylaxis. First dose this AM. Will monitor H/H. Blood pressure improved. Regular diet. SS for disposition. Patient would like to go home with outpatient PT starting early next week. Possible discharge to home with tomorrow. Will discuss findings with Dr. Plascencia. Discharge Planning Discharge Planning: home with oppt Pain Management: Percocet, Ultram DVT Prophylaxis: TEDs, Lovenox (30mg SQ BID x 28 days) Therapy: Physical Therapy
[2017-06-09] MEDS ORDERED: OXYC1TAB3 PO (08:51)
[2017-06-09] MEDS ORDERED: CLC100 PO (08:51)
[2017-06-09] MEDS ORDERED: LVNIS30 SQ (08:51)
[2017-06-09] MEDS ORDERED: ULT50X PO (08:51)
[2017-06-09] MEDS: HYDROCHLOROTHIAZIDE 50 MG TAB PO SCH (09:24)
--- NOTE | 2017-06-09 10:53 | Anesthesiology Progress Note ---
Anesthesia Post Op Note Date & Time Jun 09, 2017 at 10:53 Vital Signs Vital Signs Past 12 Hours Date Time Temp Pulse Resp B/P (MAP) Pulse Ox O2 Delivery O2 Flow Rate FiO2 06/09/17 09:24 131/82 (98) 06/09/17 07:15 Room Air 06/09/17 06:59 36.6 69 18 152/80 (104) 90 Room Air 06/09/17 03:45 36.5 70 16 131/82 (98) 93 Nasal Cannula 2.0 06/09/17 00:00 Room Air 06/08/17 23:35 96 Nasal Cannula 2.0 06/08/17 23:30 36.4 74 16 129/78 (95) 86 Room Air Notes Mental Status: alert / awake / arousable, participated in evaluation Pt Amnestic to Procedure: Yes Nausea / Vomiting: adequately controlled Pain: adequately controlled Airway Patency, RR, SpO2: stable & adequate BP & HR: stable & adequate Hydration State: stable & adequate Neuraxial Anesthesia: was administered, sensory block resolved Anesthetic Complications: no major complications apparent
[2017-06-09] MEDS: OXYCODONE HCL IR 5 MG TAB (IMMEDIATE RELEASE) PO PRN ×3 (11:09→21:32)
--- NOTE | 2017-06-09 11:16 | Discharge Instructions ---
Discharge Instructions Date of Service Jun 09, 2017. Admission Reason for Admission: Right Knee Degenerative Joint Disease Discharge Discharge Diagnosis / Problem: Right knee degenerative joint disease - status post right TKA Discharge Goals Goal(s): Decrease discomfort, Improve function, Increase independence Activity Recommendations Activity Limitations: per Instructions/Follow-up section Weightbearing Status: Right weightbearing (as tolerated) . Instructions / Follow-Up Instructions / Follow-Up New Medicine: * You will likely be taking one or more of these medications: 1. Lovenox - You will be on Lovenox for 4 weeks after surgery to prevent blood clots. Your dosage is 30 mg twice daily 1 month. Aspirin, 81 mg is OK to Take while on Lovenox. He will be required to obtain a CBC (bloodwork) weekly wound Lovenox. A prescription will be provided by your physician. 2. Tramadol - Take 1-2 tablets every 4-6 hours as needed for pain. 3. Oxycodone IR - Take, as directed, when you need it, every four to six hours to control your pain. Alternate with tramadol And Tylenol for pain control. 4. Colace & Senokot - Take to prevent constipation which can be caused by narcotics. These can be bought [id number] at the pharmacy * The most common side effects of pain medicine and iron are nausea and constipation. If nausea or constipation is too much of a problem or if you have any questions about your new medicines or doses, call [facility] at . We will try to help you manage these issues. VERY IMPORTANT TO READ AND REVIEW" Blood Clots and Blood Thinning Medicine: * You are given Lovenox during the immediate post-operative period to lessen the risk of blood clots forming in your legs and/or lungs. Lovenox is usually given for 4 weeks after surgery. Physical Therapy: * Do your physical therapy at home. These are the exercises you learned while in the hospital (quad sets, leg raises, calf pumps, gluteal squeezes, knee bending, and heel props.) You should do these exercises 3-4 times per day. * You will either go to inpatient rehab ([facility]), home with Home Therapy and nursing or home with outpatient rehab. You should do rehab with the therapist 2-3 times per week. You should do therapy on your own daily. * You may bear full weight on your leg with crutches or walker unless otherwise advised. Home Exercise: * You were shown a series of exercises (heel props, heel slides, etc.) in the hospital. Do these exercises three to four times each day including the exercises you were shown in physical therapy. Walking: * You may be up for short periods of time. Standing and walking for 1-2 hours at a time is usually okay. You should not stand or walk for excessive periods of time as this may cause increased pain and swelling. SELF CARE INSTRUCTIONS AFTER TOTAL KNEE REPLACEMENT A. You may need to continue a physical therapy program after discharge from the hospital. There are several options available to you. Your doctor will assist you in selecting the best one for you. 1. An out-patient facility 2 to 3 times a week for therapy or home therapy. 2. Continue working on all exercises taught to you in the hospital. Your goals should be to increase bending of your knee to 90 degrees and beyond and to fully straighten your knee. B. Your therapist will notify you when you are able to progress from a walker to a cane. C. Wear TEDS as much as possible.~ They may be removed at night for laundering. D. Do not place a pillow behind your knee when resting. A pillow at your ankle is okay. E. Ice your knee 15-20 minutes every 2-3 hours and elevate it above the level of your heart. F. You may shower on the fourth day after surgery using regular soap and water. Do not submerge until the wound is completely healed (approximately 2 weeks ). Until the fourth day after surgery, cover the incision/bandage with a bag or plastic wrap. G. Anyone who is touching your surgical incision area should wash their hands and wear gloves. H. Keep your incision covered with gauze pads under the DESTINI hose until it is dry. VERY IMPORTANT TO READ AND REVIEW A. YOU WILL BE GIVEN AN ORDER AT DISCHARGE FOR PT/INR (BLOOD WORK). PLEASE HAVE THIS DONE INSTRUCTED. PLEASE CALL OUR OFFICE AFTER YOUR BLOODWORK IS COMPLETE SO WE CAN TRACK YOUR RESULTS. IF YOU ARE GOING TO OUTPATIENT PHYSICAL THERAPY, YOU WILL NEED TO GO TO OUTPATIENT TESTING TO HAVE IT DRAWN. B. There are a few signs you need to watch for after you are home. Call [facility] if you notice any of the followin. Increased severe knee pain. Some pain is expected especially when you exercise. 2. Increased swelling in your leg or knee; pain or swelling of the calf muscle in either lower leg. 3. Any fluid drainage from the incision. 4. Shortness of breath or chest pain. 5. Numbness and tingling in the surgical extremity C. Please call [facility] at if you have any concerns or questions about your operation or recovery. The doctor or his nurse will return your call promptly. D. Do not have any elective dental work or other elective procedures done for 6 weeks after your knee replacement. When you have any invasive procedure (dental cleaning, extraction, colonoscopy etc) performed, you will need to take antibiotics to prevent infection from developing in your artificial joint. Tell your other health care providers you have an artificial joint. My office will supply you with further information and the antibiotics. Call your doctor if: * Temperature above 101 degrees F. * Pain not relieved by pain medicine ordered. * Increased drainage or redness from incision. * Notify your doctor with any questions or concerns. Follow-up Visit: You will follow-up with Dr. Plascencia 10-14 days after surgery. The office number is . * You should begin outpatient physical therapy next Wednesday or Wednesday following Your surgery. * You have a follow-up appointment scheduled with Dr. Plascencia on June 21, 2017 11:45 AM. Avoid all tobacco products. If you need help to stop smoking, call [place] QUIT[facility] at . This is a free call. Current Hospital Diet Patient's current hospital diet: Regular Diet Discharge Diet Recommended Diet: Regular Diet Procedures Procedures Performed: Right Total Knee Arthroplasty, Cemented Pending Studies Studies pending at discharge: no Medical Emergencies . Who to Call and When: Medical Emergencies: If at any time you feel your situation is an emergency, please call 911 immediately. . Non-Emergent Contact Non-Emergency issues call your: Surgeon Call Non-Emergent contact if: temperature is above 101, your pain is not controlled, your pain is unusual for you, wound has increased drainage, wound has increased redness, wound has increased pain, you have any medication questions . "Provider Documentation" section prepared by Soraya Ervin. . VTE Core Measure Inpt VTE Proph given/why not?: Enoxaparin (Lovenox)SQ (30 mg by mouth twice a day 4 weeks), [facility] Drug Monitoring Program Search Results: patient reviewed within database, no issues identified
[2017-06-09] MEDS ORDERED: CLONIDINE HCL 0.1 MG TAB PO PRN (11:45)
[2017-06-09] MEDS: ENOXAPARIN 30 MG/0.3 ML SYR SQ SCH ×2 (14:26→21:30)
--- NOTE | 2017-06-09 18:31 | PROGRESS NOTE ---
DATE: 06/09/2017 HISTORY OF PRESENT ILLNESS: She is resting comfortably in bed. She is experiencing increased pain. We went over her pain medicine which is available and pain management strategy. No chest pain, shortness of breath, belly pain, nausea, vomiting. Afebrile, vital signs stable. Blood pressure is well controlled now. Urine output is adequate. Labs show elevated white count, likely secondary to stress and steroids. Hemoglobin and hematocrit mildly low. PT/INR normal. PRP noted. She did well with physical therapy today and ambulated 175 feet, bend her knee approximately 75 degrees. PHYSICAL EXAMINATION: Her dressing is clean and dry. She can bend her knee from 0-30 and posterior table 1+. Normal sensation in the foot, 5/5 ankle and toe plantar flexion and dorsiflexion. IMPRESSION: 1. Right knee replacement. 2. High blood pressure. PLAN: She is doing well postoperatively. We reviewed a bowel regimen. I ordered some Senokot. Pain medication management strategy reviewed. Continue Lovenox for DVT prophylaxis. I will change her dressing tomorrow. We discussed the possible disposition and need for continued admission should she have continued increased pain.
[2017-06-09] MEDS: MoRPHine SULFATE 2 MG/ML CARP IV PRN (19:13)
[2017-06-09] MEDS: TRAMADOL HCL 50 MG TAB PO PRN (23:54)
[2017-06-10] VITALS (7 sets, daily range): BP systolic 138–176; BP diastolic 81–91; PULSE 74–97; TEMP 36.5–37.6; O2SAT 75–99
[2017-06-10] MEDS: MoRPHine SULFATE 4 MG/ML 1 ML CARP\\VIAL IV PRN ×2 (03:39→19:08)
[2017-06-10] MEDS: OXYCODONE HCL IR 5 MG TAB (IMMEDIATE RELEASE) PO PRN ×3 (05:55→16:12)
[2017-06-10 06:02] LABS: PARTIAL THROMBOPLASTIN RATIO 0.9
[2017-06-10] MEDS: TRAMADOL HCL 50 MG TAB PO PRN ×2 (07:44→09:26)
--- NOTE | 2017-06-10 09:14 | Orthopedic Progress Note ---
Orthopedic Progress Note Date of Service Jun 10, 2017. Subjective Post OP Day: 2 Reports: complaints (significant increase in pain over medial aspect of knee that is not controlled with her oral or IV pain meds.), calf pain (mild calf pain with ambulation), Denies: feeling well, chest pain, SOB, nausea / vomiting , light headedness, pain controlled w PO medications, using TOWERMAN Additional Notes: Casandra state that she does not want to leave today. She thinks that she needs to get her pain under control before she should be discharged. Objective calves soft nontender (Calves are soft but mildly tender to palpation), N/V intact, capillary refill less than 2 sec., dressing C/D/I, A&O x3, toes mobile, CMS intact Patient is able to active assisted Right leg raise with pain Date Time Temp Pulse Resp B/P (MAP) Pulse Ox O2 Delivery O2 Flow Rate FiO2 06/10/17 07:35 Room Air 06/09/17 23:45 Room Air 06/09/17 23:40 36.7 79 16 153/85 (107) 96 Room Air 06/09/17 15:29 36.7 91 18 151/90 (110) 95 Room Air 06/09/17 15:25 Room Air 06/09/17 12:29 130/85 (100) 06/09/17 11:08 36.8 83 18 166/93 (117) 91 Room Air 06/09/17 09:24 131/82 (98) Assessment & Plan Assessment: POD 2 - Right TKA Plan: Ofirmev IV ordered for pain relief. Continue OOB/WBAT RLE with assistance of walker. Ice/elevate as needed for pain/swelling Continue exercises/PT. Encouraged straightening exercises. Pain medication as prescribed. Lovenox 30 mg BID x 28 days for DVT prophylaxis. First dose this AM. Will monitor H/H. Blood pressure improved. Regular diet. Patient would like to go home possibly tomorrow with outpatient PT starting early next week. Will discuss findings with Dr. Plascencia. Discharge Planning Discharge Planning: home with oppt Pain Management: Percocet, Ultram DVT Prophylaxis: TEDs, Lovenox (30mg SQ BID x 28 days) Therapy: Physical Therapy
[2017-06-10] MEDS ORDERED: ACETAMINOPHEN IV 650 MG in EMPTY BAG 0 ML IV PRN (09:15)
[2017-06-10] MEDS: DOCUSATE SODIUM 100 MG CAP PO SCH ×2 (09:31→21:00)
[2017-06-10] MEDS: PANTOprazole SOD 40 MG TAB PO SCH (09:32)
[2017-06-10] MEDS: SENNA 8.6 MG TAB PO SCH (09:32)
[2017-06-10] MEDS: ROSUVASTATIN CALCIUM 20 MG TAB PO SCH (09:36)
[2017-06-10] MEDS: ASPIRIN 81 MG ECTAB PO SCH (09:37)
[2017-06-10] MEDS: HYDROCHLOROTHIAZIDE 50 MG TAB PO SCH (09:38)
[2017-06-10] MEDS: MULTIVITAMIN TAB PO SCH (09:38)
[2017-06-10] MEDS: ENOXAPARIN 30 MG/0.3 ML SYR SQ SCH ×2 (09:45→21:27)
[2017-06-10] MEDS: GABAPENTIN 300 MG CAP PO SCH ×2 (10:26→21:27)
[2017-06-10] MEDS: CALCIUM 600MG + VIT D 400 IU TAB PO SCH ×2 (10:26→21:27)
--- NOTE | 2017-06-10 15:17 | Progress Note ---
Internal Med Progress Note Date of Service: Jun 09, 2017. Provider Documentation: This is a bill for 06/09/17 SUBJECTIVE: The patient was seen and [id number] Done with today's PT Tired and has some pain OBJECTIVE: Vital Signs-as noted below Exam: General-Otherwise no distress Eyes-normal ENT-normal Neck-supple Lungs-Clear to auscultate bilaterally Heart-Regular,no murmur Abdomen-Benign,no masses Extremities-Trace edema bilaterally Neuro-AAOx3 Lab data as noted below. ASSESSMENT & PLAN: This is a 72yo F with a PMH of HTN, HLD, venous stasis dermatitis and generalized OA who is POD#0 s/p R knee total arthroplasty performed by Dr. Plascencia. Hypertension: -BP elevated to 185/99 on 06/08 -Asymptomatic, no evidence of end organ failure -Likely multifactorial: -Diuretics (Lasix and HCTZ) held this AM prior to surgery -Receiving IVF post-op -Inadequate pain control (Has only been taking half of PRN pain medication) -Give diuretic doses missed this AM -Continue to monitor and make adjustments if indicated -BP a little down -will monitor S/p R TKA: -H/o longstanding OA -POD#[address] s[address] Plascencia -Pt is doing well post-operatively -Per ortho for pain control, wound care, anticoagulation and activities -Monitor H&H, continue incentive spirometry, PT/OT when appropriate Non-obstructive CAD: -No CP, SOB -Continue aspirin, statin -no acute issue R venous stasis dermatitis : -Resume diuretics HLD: -Stable -Continue statin DVT Ppx: Per ortho Code status: FULL Medically stable Vital Signs: Date Time Temp Pulse Resp B/P (MAP) Pulse Ox O2 Delivery O2 Flow Rate FiO2 06/10/17 11:15 36.9 75 20 162/88 (112) 97 Room Air 06/10/17 09:23 99 Room Air 06/10/17 08:15 36.5 74 14 138/81 (100) 06/10/17 08:11 36.5 74 14 06/10/17 07:35 Room Air 06/09/17 23:45 Room Air 06/09/17 23:40 36.7 79 16 153/85 (107) 96 Room Air 06/09/17 15:29 36.7 91 18 151/90 (110) 95 Room Air 06/09/17 15:25 Room Air Lab Results: Results Past 24 Hours Test 06/10/17 05:31 Range/Units Activated Partial Thromboplast Time 23.3 21.0-31.0 SECONDS Partial Thromboplastin Ratio 0.9
--- NOTE | 2017-06-10 15:20 | Progress Note ---
Internal Med Progress Note Date of Service: Jun 10, 2017. Provider Documentation: SUBJECTIVE: The patient was seen and [id number] Done with today's PT Tired and has some pain More pain today No CP ,palpitation,SOB OBJECTIVE: Vital Signs-as noted below Exam: General-Otherwise no distress Eyes-normal ENT-normal Neck-supple Lungs-Clear to auscultate bilaterally Heart-Regular,no murmur Abdomen-Benign,no masses Extremities-Trace edema bilaterally Neuro-AAOx3 Lab data as noted below. ASSESSMENT & PLAN: This is a 72yo F with a PMH of HTN, HLD, venous stasis dermatitis and generalized OA who is POD#0 s/p R knee total arthroplasty performed by Dr. Plascencia. Hypertension: -BP elevated to 185/99 on 06/08 -Asymptomatic, no evidence of end organ failure -Likely multifactorial: -Diuretics (Lasix and HCTZ) held this AM prior to surgery -Receiving IVF post-op -Inadequate pain control (Has only been taking half of PRN pain medication) -Give diuretic doses missed this AM -Continue to monitor and make adjustments if indicated -BP up this morning -likely secondary to Pain -will nor start any med now S/p R TKA: -H/o longstanding OA -POD# [address] Plascencia -Pt is doing well post-operatively -management as per Ortho - Non-obstructive CAD: -No CP, SOB -Continue aspirin, statin -no acute issue R venous stasis dermatitis : -Resume diuretics HLD: -Stable -Continue statin DVT Ppx: Per ortho Code status: FULL Medically stable Likely to be discharged tomorrow Vital Signs: Date Time Temp Pulse Resp B/P (MAP) Pulse Ox O2 Delivery O2 Flow Rate FiO2 06/10/17 11:15 36.9 75 20 162/88 (112) 97 Room Air 06/10/17 09:23 99 Room Air 06/10/17 08:15 36.5 74 14 138/81 (100) 06/10/17 08:11 36.5 74 14 06/10/17 07:35 Room Air 06/09/17 23:45 Room Air 06/09/17 23:40 36.7 79 16 153/85 (107) 96 Room Air 06/09/17 15:29 36.7 91 18 151/90 (110) 95 Room Air 06/09/17 15:25 Room Air Lab Results: Results Past 24 Hours Test 06/10/17 05:31 Range/Units Activated Partial Thromboplast Time 23.3 21.0-31.0 SECONDS Partial Thromboplastin Ratio 0.9
--- NOTE | 2017-06-10 16:27 | Orthopedic Progress Note ---
Orthopedic Progress Note Date of Service Jun 10, 2017. Subjective Post OP Day: 2 Reports: complaints (pain right knee today, controlled when taking adequate pain medication), pain controlled w PO medications, Denies: chest pain, SOB, nausea / vomiting, light headedness, calf pain Objective calves soft nontender, N/V intact, capillary refill less than 2 sec., incision C /D/I, A&O x3, toes mobile Silverlon dressing removed, reapplied new dressing today. Tatyana intact. Small fractures blisters laterally. No effusion right knee. Distal pulses 1+. Distal sensation normal. Date Time Temp Pulse Resp B/P (MAP) Pulse Ox O2 Delivery O2 Flow Rate FiO2 06/10/17 11:15 36.9 75 20 162/88 (112) 97 Room Air 06/10/17 09:23 99 Room Air 06/10/17 08:15 36.5 74 14 138/81 (100) 06/10/17 08:11 36.5 74 14 06/10/17 07:35 Room Air 06/09/17 23:45 Room Air 06/09/17 23:40 36.7 79 16 153/85 (107) 96 Room Air Assessment & Plan Assessment: POD 2 - Right TKA Plan: Continue OOB/WBAT RLE with assistance of walker. Ice/elevate as needed for pain/swelling Knee immobilizer when OOB as needed for comfort. Continue exercises/PT. Encouraged straightening exercises. Pain medication as ordered Lovenox 30 mg BID x 28 days for DVT prophylaxis. Continue regular diet. Patient would like to go home with outpatient PT starting early next week. Plan for discharge to home tomorrow. Dr. Plascencia was present for exam. Will re-eval in the AM. Discharge Planning Discharge Planning: home with oppt Pain Management: Percocet, Ultram DVT Prophylaxis: TEDs, Lovenox (30mg SQ BID x 28 days) Therapy: Physical Therapy
[2017-06-10] MEDS: MoRPHine SULFATE 2 MG/ML CARP IV PRN (23:47)
[2017-06-11] MEDS: OXYCODONE HCL IR 5 MG TAB (IMMEDIATE RELEASE) PO PRN ×2 (05:24→11:26)
[2017-06-11 07:24] VITALS: BP 148/82; PULSE 91; TEMP 37.3; O2SAT 91
[2017-06-11] MEDS: CALCIUM 600MG + VIT D 400 IU TAB PO SCH (08:38)
[2017-06-11] MEDS: TRAMADOL HCL 50 MG TAB PO PRN ×2 (08:38→13:36)
[2017-06-11] MEDS: ROSUVASTATIN CALCIUM 20 MG TAB PO SCH (08:39)
[2017-06-11] MEDS: DOCUSATE SODIUM 100 MG CAP PO SCH (08:39)
[2017-06-11] MEDS: ENOXAPARIN 30 MG/0.3 ML SYR SQ SCH (08:40)
[2017-06-11] MEDS: GABAPENTIN 300 MG CAP PO SCH (08:41)
[2017-06-11] MEDS: SENNA 8.6 MG TAB PO SCH (08:41)
[2017-06-11] MEDS: MULTIVITAMIN TAB PO SCH (08:41)
[2017-06-11] MEDS: PANTOprazole SOD 40 MG TAB PO SCH (08:41)
[2017-06-11] MEDS: ASPIRIN 81 MG ECTAB PO SCH (08:42)
[2017-06-11 08:43] VITALS: BP 124/62; PULSE 87
[2017-06-11] MEDS: HYDROCHLOROTHIAZIDE 50 MG TAB PO SCH (08:44)
[2017-06-11 10:49] VITALS: BP 123/71; PULSE 99; O2SAT 97
--- NOTE | 2017-06-11 12:53 | Orthopedic Progress Note ---
Orthopedic Progress Note Date of Service Jun 11, 2017. Subjective Post OP Day: 3 Reports: pain controlled w PO medications, Denies: feeling well, complaints, chest pain, SOB, nausea / vomiting, light headedness, calf pain Objective calves soft nontender, N/V intact, capillary refill less than 2 sec., dressing C /D/I, incision C/D/I, A&O x3, toes mobile Dressing removed, silverlon dressing placed. Date Time Temp Pulse Resp B/P (MAP) Pulse Ox O2 Delivery O2 Flow Rate FiO2 06/11/17 10:49 99 97 06/11/17 08:43 87 124/62 (82) 06/11/17 07:45 Room Air 06/11/17 07:24 37.3 91 17 148/82 (104) 91 Room Air 06/10/17 23:52 89 16 164/81 (108) 95 Room Air 06/10/17 23:49 Room Air 06/10/17 23:10 37.6 77 16 176/83 (114) 96 Room Air 06/10/17 16:00 Room Air 06/10/17 15:54 97 75 Assessment & Plan Assessment: POD 3 - Right TKA Plan: Continue OOB/WBAT RLE with assistance of walker. Ice/elevate as needed for pain/swelling Knee immobilizer when OOB as needed for comfort. Continue exercises/PT. Encouraged straightening exercises. Pain medication as ordered Lovenox 30 mg BID x 28 days for DVT prophylaxis. Continue regular diet. Patient would like to go home with outpatient PT starting early next week. Plan for discharge today Dr. Plascencia aware of today's findings. Follow up as scheduled as outpatient. Discharge Planning Discharge Planning: home with oppt Pain Management: Percocet, Ultram DVT Prophylaxis: TEDs, Lovenox (30mg SQ BID x 28 days) Therapy: Physical Therapy
[2017-06-11 13:52] VITALS: BP 123/71; PULSE 99; TEMP 37.3; O2SAT 97
--- NOTE | 2017-06-11 15:38 | Discharge Summary ---
Discharge Summary Date of Service Jun 11, 2017. Discharge Summary Admission Date: Jun 08, 2017 at 09:30 Discharge Date: Jun 10, 2017 Discharge Disposition: Home Principal Diagnosis: Degenerative joint disease right knee Procedures: Right total knee arthroplasty by Dr. Plascencia on June 08, 2017 Consultations: Hospitalist Pending Studies/Follow-Up: Follow-up with Dr. Plascencia as scheduled 10-14 days postoperatively. Medication Reconciliation New Medications: Oxycodone Immediate Rel Tab (Roxicodone Ir) 5 Mg Tab 1-2 TAB PO Q4H PRN for Severe Pain, #30 TAB Tramadol HCl (Tramadol HCl) 50 Mg Tab 50-100 MG PO Q4H for Pain, #30 50 mg for pain 1-5 100 mg for pain 6-10 Docusate Sodium (Docusate Sodium) 100 Mg Cap 100 MG PO BID for 30 Days, #60 CAP Enoxaparin (Lovenox) 30 Mg/0.3 Ml Inj 30 MG SQ Q12H for 28 Days, #56 SYR 1 Refill Continued Medications: Acetaminophen (Tylenol) 500 Mg Tab 1000 MG PO Q8 PRN for Pain, TAB Aspirin (Aspirin Ec) 81 Mg Tab 81 MG PO QAM Calcium Carbonate-Vitamin D (Calcium + D) 1 Tab Tab 1 TAB PO BID Furosemide (Lasix) 20 Mg Tab 20 MG PO DAILY PRN for EDEMA, TAB Gabapentin (Neurontin) 300 Mg Cap 300 MG PO BID, CAP Hydrochlorothiazide (Hctz) 50 Mg Tab 50 MG PO QAM, TAB Multiple Vitamins W/ Minerals (Hair Skin and Nails Formu) 1 Tab Tab 1 TAB PO QAM Multivitamin (Multivitamin) Tab 1 TAB PO QAM, TAB Rosuvastatin Calcium (Crestor) 40 Mg Tab 40 MG PO QAM, TAB Discontinued Medications: Naproxen (Naprosyn) 500 Mg Tab 500 MG PO BID, TAB Hospital Course Patient is a 72-year-old female who was admitted on June 08, 2017 after undergoing a right total knee arthroplasty by Dr. Ced Plascencia. She tolerated the procedure well without any intraoperative complications. She was given 2 g of IV Ancef surgical prophylaxis which was continued 24 hours postoperatively. Her surgery was done with spinal anesthesia peripheral nerve block. Postoperative x-ray was completed and showed a stable prosthesis present. She was allowed to be out of bed, weightbearing as tolerated right lower extremity with the assistance of a walker and knee immobilizer. Pain medication was ordered for postoperative pain control. She was placed on Lovenox 30 mg twice a day to start on postoperative day one for DVT prophylaxis. She was also provided with AV impulse boots and thigh-high DESTINI stockings. Her home medications were ordered during her hospital stay. Therapy and occupational therapy consults were placed. She did develop some increased pain on postoperative day 2 which was controlled with Oral pain medication. A silverlon dressing was placed over her incision. Postoperatively on the day of her surgery should develop some high blood pressure. A medical consultation was obtained. She was followed by the medical service during her hospital stay.She had no postoperative complications during her hospital stay. She did well out of bed with physical therapy. She tolerated a regular diet. She was deemed safe for discharge to her home. Case management and older adult social work specialist evaluated for discharge needs. She was discharged to her home in stable condition with her . Total time spent on discharge = This includes examination of the patient, discharge planning, medication reconciliation, and communication with other providers. Discharge Instructions Discharge Instructions Date of Service Jun 09, 2017. Admission Reason for Admission: Right Knee Degenerative Joint Disease Discharge Discharge Diagnosis / Problem: Right knee degenerative joint disease - status post right TKA Discharge Goals Goal(s): Decrease discomfort, Improve function, Increase independence Activity Recommendations Activity Limitations: per Instructions/Follow-up section Weightbearing Status: Right weightbearing (as tolerated) . Instructions / Follow-Up Instructions / Follow-Up New Medicine: * You will likely be taking one or more of these medications: 1. Lovenox - You will be on Lovenox for 4 weeks after surgery to prevent blood clots. Your dosage is 30 mg twice daily 1 month. Aspirin, 81 mg is OK to Take while on Lovenox. He will be required to obtain a CBC (bloodwork) weekly wound Lovenox. A prescription will be provided by your physician. 2. Tramadol - Take 1-2 tablets every 4-6 hours as needed for pain. 3. Oxycodone IR - Take, as directed, when you need it, every four to six hours to control your pain. Alternate with tramadol And Tylenol for pain control. 4. Colace & Senokot - Take to prevent constipation which can be caused by narcotics. These can be bought [id number] at the pharmacy * The most common side effects of pain medicine and iron are nausea and constipation. If nausea or constipation is too much of a problem or if you have any questions about your new medicines or doses, call [facility] at . We will try to help you manage these issues. VERY IMPORTANT TO READ AND REVIEW" Blood Clots and Blood Thinning Medicine: * You are given Lovenox during the immediate post-operative period to lessen the risk of blood clots forming in your legs and/or lungs. Lovenox is usually given for 4 weeks after surgery. Physical Therapy: * Do your physical therapy at home. These are the exercises you learned while in the hospital (quad sets, leg raises, calf pumps, gluteal squeezes, knee bending, and heel props.) You should do these exercises 3-4 times per day. * You will either go to inpatient rehab ([facility]), home with Home Therapy and nursing or home with outpatient rehab. You should do rehab with the therapist 2-3 times per week. You should do therapy on your own daily. * You may bear full weight on your leg with crutches or walker unless otherwise advised. Home Exercise: * You were shown a series of exercises (heel props, heel slides, etc.) in the hospital. Do these exercises three to four times each day including the exercises you were shown in physical therapy. Walking: * You may be up for short periods of time. Standing and walking for 1-2 hours at a time is usually okay. You should not stand or walk for excessive periods of time as this may cause increased pain and swelling. SELF CARE INSTRUCTIONS AFTER TOTAL KNEE REPLACEMENT A. You may need to continue a physical therapy program after discharge from the hospital. There are several options available to you. Your doctor will assist you in selecting the best one for you. 1. An out-patient facility 2 to 3 times a week for therapy or home therapy. 2. Continue working on all exercises taught to you in the hospital. Your goals should be to increase bending of your knee to 90 degrees and beyond and to fully straighten your knee. B. Your therapist will notify you when you are able to progress from a walker to a cane. C. Wear TEDS as much as possible.~ They may be removed at night for laundering. D. Do not place a pillow behind your knee when resting. A pillow at your ankle is okay. E. Ice your knee 15-20 minutes every 2-3 hours and elevate it above the level of your heart. F. You may shower on the fourth day after surgery using regular soap and water. Do not submerge until the wound is completely healed (approximately 2 weeks ). Until the fourth day after surgery, cover the incision/bandage with a bag or plastic wrap. G. Anyone who is touching your surgical incision area should wash their hands and wear gloves. H. Keep your incision covered with gauze pads under the DESTINI hose until it is dry. VERY IMPORTANT TO READ AND REVIEW A. YOU WILL BE GIVEN AN ORDER AT DISCHARGE FOR PT/INR (BLOOD WORK). PLEASE HAVE THIS DONE INSTRUCTED. PLEASE CALL OUR OFFICE AFTER YOUR BLOODWORK IS COMPLETE SO WE CAN TRACK YOUR RESULTS. IF YOU ARE GOING TO OUTPATIENT PHYSICAL THERAPY, YOU WILL NEED TO GO TO OUTPATIENT TESTING TO HAVE IT DRAWN. B. There are a few signs you need to watch for after you are home. Call [facility] if you notice any of the followin. Increased severe knee pain. Some pain is expected especially when you exercise. 2. Increased swelling in your leg or knee; pain or swelling of the calf muscle in either lower leg. 3. Any fluid drainage from the incision. 4. Shortness of breath or chest pain. 5. Numbness and tingling in the surgical extremity C. Please call [facility] at if you have any concerns or questions about your operation or recovery. The doctor or his nurse will return your call promptly. D. Do not have any elective dental work or other elective procedures done for 6 weeks after your knee replacement. When you have any invasive procedure (dental cleaning, extraction, colonoscopy etc) performed, you will need to take antibiotics to prevent infection from developing in your artificial joint. Tell your other health care providers you have an artificial joint. My office will supply you with further information and the antibiotics. Call your doctor if: * Temperature above 101 degrees F. * Pain not relieved by pain medicine ordered. * Increased drainage or redness from incision. * Notify your doctor with any questions or concerns. Follow-up Visit: You will follow-up with Dr. Plascencia 10-14 days after surgery. The office number is . * You should begin outpatient physical therapy next Wednesday or Wednesday following Your surgery. * You have a follow-up appointment scheduled with Dr. Plascencia on June 21, 2017 11:45 AM. Avoid all tobacco products. If you need help to stop smoking, call [place] FREE QUITLINE at . This is a free call. Current Hospital Diet Patient's current hospital diet: Regular Diet Discharge Diet Recommended Diet: Regular Diet Procedures Procedures Performed: Right Total Knee Arthroplasty, Cemented Pending Studies Studies pending at discharge: no Medical Emergencies . Who to Call and When: Medical Emergencies: If at any time you feel your situation is an emergency, please call 911 immediately. . Non-Emergent Contact Non-Emergency issues call your: Surgeon Call Non-Emergent contact if: temperature is above 101, your pain is not controlled, your pain is unusual for you, wound has increased drainage, wound has increased redness, wound has increased pain, you have any medication questions . "Provider Documentation" section prepared by Soraya Ervin. . VTE Core Measure Inpt VTE Proph given/why not?: Enoxaparin (Lovenox)SQ (30 mg by mouth twice a day 4 weeks), [place] Drug Monitoring Program Search Results: patient reviewed within database, no issues identified Addendum: Jennifer. Ervin R (ORTHO) on 06/11/17 @ 14:45 Discharge Inst - Addendum Addendum Notes: Leave Silverlon dressing in place x 7 days. Okay to shower with dressing on. Remove next week, okay to leave on until Wednesday or remove on Wednesday. Once removed, cover with dressings as needed or leave open to air if your incision is clean and dry. Addendum Provider: Addendum Notes were documented by provider Soraya Ervin.
== END 2017-06-11 14:50 | disposition home or self-care (01) | DRG 470 ==
LOC: C.ACU 07:03 → C.MSW 09:30 → ENRESERV 14:00
PROVIDERS: ADMIT Physical Medicine & Rehabilitation Sports Medicine; ATTEND Physical Medicine & Rehabilitation Sports Medicine
PROC: 0SRC0J9 Replacement of Right Knee Joint with Synthetic Substitute, Cemented, Open Approach (ICD-10-PCS; principal; 2017-06-08 09:45)
PROC: 0LNQ0ZZ Release Right Knee Tendon, Open Approach (ICD-10-PCS; principal; 2017-06-08 09:45)
DX: M17.11 Unilateral primary osteoarthritis, right knee (principal); M24.561 Contracture, right knee; E78.5 Hyperlipidemia, unspecified; I87.8 Other specified disorders of veins; I25.10 Atherosclerotic heart disease of native coronary artery without angina pectoris; I10 Essential (primary) hypertension; K21.9 Gastro-esophageal reflux disease without esophagitis; Z79.82 Long term (current) use of aspirin; Z79.899 Other long term (current) drug therapy

== ENCOUNTER → 2017-06-15 | Outpatient (CLI) | payer OTHER ==
[~2017-06-15] MED LIST changes: -ACETAMINOPHEN 500 MG TAB PO SCH; -BUPIVACAINE 0.5 % 5 MG/1 ML PF 10ML VIAL ONE; -CEFAZOLIN 2000 MG/60 ML D5W 60 ML IV SCH; +CLC100 PO; -CLONIDINE HCL 0.1 MG/24 HR TRANSDERM SYS TD SCH; -CeleBREX 200 MG CAP PO SCH; -DEXAMETHASONE 4 MG TAB PO SCH; -FAMOTIDINE 20 MG TAB PO SCH; -GABAPENTIN 300 MG CAP PO SCH; -LACTATED RINGER'S 1000ML 1,000 ML IV SCH; -LACTATED RINGER'S 1000ML 500 ML IV ONE; +LVNIS30 SQ; -METOCLOPRAMIDE HCL 10 MG TAB PO SCH; -NAPR-1169 PO; +OXYC1TAB3 PO; -OXYCODONE HCL 10 MG TABCR (OXYCONTIN) PO SCH; -ROPIVACAINE 0.5% 5 MG/ML 30 ML VIAL ONE; -ROPIVACAINE 5MG/ML 30 ML 150 MG, BUPIVACAINE/EPINEPHR 0.5% MPF 30 ML, KETOROLAC TROMETH... INFIL SCH; -TRAMADOL HCL 50 MG TAB PO SCH; +ULT50X PO
== END | disposition home or self-care (01) ==
LOC: C.RDSM 14:36
PROVIDERS: ATTEND Physical Medicine & Rehabilitation Sports Medicine
DX: M17.9 Osteoarthritis of knee, unspecified (principal)

== ENCOUNTER → 2017-07-21 | Outpatient (CLI) | payer OTHER ==
--- NOTE | 2017-07-21 16:53 | DIAGNOSTIC IMAGING REPORT ---
RIGHT LOWER EXTREMITY VENOUS DOPPLER CLINICAL HISTORY: Knee replacement. Right leg swelling. COMPARISON STUDY: No previous studies for comparison. TECHNIQUE: Sonography of the deep venous system of the right lower extremity was performed. Compression and augmentation were evaluated. FINDINGS: The common femoral, superficial femoral and popliteal veins were compressible. Augmentation was normal. Flow was shown within the deep calf vessels. IMPRESSION: No evidence of deep venous thrombus within the right lower extremity. Electronically signed by: Marciano Hernandez M.D. 07/21/2017 4:51 PM Dictated Date/Time: 07/21/2017 4:51 PM
== END | disposition home or self-care (01) ==
LOC: C.ULTR 16:25
PROVIDERS: ATTEND Physical Medicine & Rehabilitation Sports Medicine
DX: R60.0 Localized edema (principal); Z96.651 Presence of right artificial knee joint